=== PATIENT | female | born 1935 | race Caucasian/White ===

== ENCOUNTER 2025-03-04 17:51 | Inpatient (IN) | payer MEDICARE, OTHER ==
[2025-03-04] VITALS: BP 100/54; TEMP 97.7; O2SAT 98
[~2025-03-04] VITALS: Ht 157.5 cm; Wt 56.7 kg
[2025-03-04] MEDS ORDERED: ONDANSETRON HCL/PF 4 MG/2 ML VIAL ONE ×2 (18:40→21:26)
[2025-03-04] MEDS: IV LR 1000 ML 1,000 ML IV ONE (18:45)
[2025-03-04] MEDS: ONDANSETRON HCL/PF 4 MG/2 ML VIAL IVP ONE (18:57)
[2025-03-04] MEDS: PANTOPRAZOLE 80 MG in IV NS 0.9% 500 ML IV ONE (19:05)
[2025-03-04 19:24] LABS: PLATELET COUNT (AUTO) 241 K/uL (150-450); RED BLOOD CELL COUNT(AUTO) 3.13 MIL/uL (4.0-5.2); RED CELL DISTRIBUTION WIDTH 15.4 % (11.5-15.0); WHITE BLOOD COUNT (AUTO) 8.5 K/uL (4.3-11.0)
[2025-03-04 19:29] LABS: CALCIUM, SERUM 9.0 mg/dL (8.5-10.1); CREATININE 1.1 mg/dL (0.6-1.3); SODIUM SERUM 136 mmol/L (136-145); UREA NITROGEN, BLOOD 35 mg/dL (7-18)
[2025-03-04 19:38] LABS: INR 1.11 (0.91-1.10); LACTIC ACID 2.2 mmol/L (0.4-2.0)
[2025-03-04 19:43] LABS: ASPARTATE AMINOTRANSFERASE 54 U/L (15-37); TOTAL PROTEIN, SERUM 7.0 g/dL (6.4-8.2)
[2025-03-04] MEDS ORDERED: IV NS 0.9% 250 ML IV ONE (19:46)
[2025-03-04] MEDS ORDERED: IOHEXOL-300 100 ML VIAL IV ONE (19:46)
[2025-03-04] MEDS: MORPHINE SULFATE INJ 2 MG/ML DISP.SYRIN IV ONE (21:00)
[2025-03-04] MEDS ORDERED: LIDOCAINE VISCOUS 2% UD 15 ML UDC ONE (21:27)
[2025-03-04] MEDS ORDERED: LIDOCAINE VISCOUS 2% UD 15 ML UDC MM SCH (21:30)
[2025-03-04] MEDS: ONDANSETRON HCL/PF 4 MG/2 ML VIAL IV ONE (21:48)
[2025-03-04] MEDS ORDERED: ONDANSETRON HCL/PF 4 MG/2 ML VIAL IVP PRN (22:00)
[2025-03-04 23:00] VITALS: BP 98/50; TEMP 97.5; O2SAT 98
[2025-03-04] MEDS: IV NS 0.9% 1,000 ML IV PRN (23:42)
[2025-03-05] VITALS (54 sets, daily range): BP systolic 85–138; BP diastolic 43–113; TEMP 97.6–99.1; O2SAT 91–100
[2025-03-05] MEDS ORDERED: OCTREOTIDE 500 MCG/ML VIAL ONE (02:01)
[2025-03-05 04:52] LABS: PLATELET COUNT (AUTO) 198 K/uL (150-450); RED BLOOD CELL COUNT(AUTO) 2.48 MIL/uL (4.0-5.2); RED CELL DISTRIBUTION WIDTH 15.5 % (11.5-15.0); WHITE BLOOD COUNT (AUTO) 7.6 K/uL (4.3-11.0)
[2025-03-05 05:23] LABS: CALCIUM, SERUM 8.0 mg/dL (8.5-10.1); CREATININE 1.1 mg/dL (0.6-1.3); PHOSPHORUS 3.6 mg/dL (2.5-4.9); SODIUM SERUM 139.0 mmol/L (136-145); UREA NITROGEN, BLOOD 44.0 mg/dL (7-18)
[2025-03-05] MEDS ORDERED: PANTOPRAZOLE 40 MG VIAL ONE (05:44)
[2025-03-05] MEDS: OCTREOTIDE 500 MCG in IV NS 0.9% 99 ML IV PRN (05:58)
[2025-03-05] MEDS: PANTOPRAZOLE 80 MG in IV NS 0.9% 500 ML IV PRN (06:02)
[2025-03-05] MEDS ORDERED: MAGN400T26 PO (08:26)
[2025-03-05] MEDS ORDERED: ERGO500093 PO (08:26)
[2025-03-05] MEDS ORDERED: FERR325T30 PO (08:26)
[2025-03-05] MEDS ORDERED: FOLI0.4T6 PO (08:26)
[2025-03-05] MEDS ORDERED: DOCU250C14 PO (08:26)
[2025-03-05] MEDS ORDERED: HYDR-4075 PO (08:26)
[2025-03-05] MEDS ORDERED: ACET500C4 PO (08:26)
[2025-03-05] MEDS ORDERED: CYAN10006 IJ (08:26)
[2025-03-05] MEDS ORDERED: METH2.5T PO (08:26)
[2025-03-05] MEDS ORDERED: APIX2.5T PO (08:26)
[2025-03-05] MEDS ORDERED: ALLO300T2 PO (08:26)
[2025-03-05] MEDS ORDERED: ROSU10TA2 PO (08:26)
[2025-03-05] MEDS ORDERED: AMIO200T5 PO (08:26)
[2025-03-05] MEDS ORDERED: FURO20TA4 PO (08:26)
[2025-03-05] MEDS ORDERED: DEXL60CA3 PO (08:26)
[2025-03-05] MEDS: INSULIN REGULAR, HUMAN 100 UNIT/ML 10 ML VIAL IV ONE (09:45)
[2025-03-05] MEDS: DEXTROSE 50%-WATER 50 ML DISP.SYRIN IVP ONE (09:48)
[2025-03-05] MEDS: PANTOPRAZOLE 40 MG VIAL IV SCH (10:09)
[2025-03-05 11:30] LABS: CALCIUM, SERUM 7.3 mg/dL (8.5-10.1); CREATININE 1.2 mg/dL (0.6-1.3); SODIUM SERUM 140 mmol/L (136-145); UREA NITROGEN, BLOOD 39 mg/dL (7-18)
[2025-03-05] MEDS ORDERED: SUCRALFATE 1 G/10 ML UDC GT SCH (12:00)
[2025-03-05] MEDS ORDERED: ANESTHESIA TRAY IN PYXIS 1 EA TRAY MC ONE (12:36)
[2025-03-05] MEDS: SUCRALFATE 1 G/10 ML UDC PO SCH (13:04)
[2025-03-05] MEDS: MORPHINE SULFATE INJ 2 MG/ML DISP.SYRIN IV PRN (18:55)
[2025-03-06] VITALS (15 sets, daily range): BP systolic 97–147; BP diastolic 48–81; TEMP 97.5–98.1; O2SAT 91–100
[2025-03-06 04:47] LABS: PLATELET COUNT (AUTO) 197 K/uL (150-450); RED BLOOD CELL COUNT(AUTO) 3.22 MIL/uL (4.0-5.2); RED CELL DISTRIBUTION WIDTH 16.1 % (11.5-15.0); WHITE BLOOD COUNT (AUTO) 7.3 K/uL (4.3-11.0)
[2025-03-06 04:58] LABS: CALCIUM, SERUM 7.6 mg/dL (8.5-10.1); CREATININE 0.9 mg/dL (0.6-1.3); PHOSPHORUS 2.4 mg/dL (2.5-4.9); SODIUM SERUM 144.0 mmol/L (136-145); UREA NITROGEN, BLOOD 36.0 mg/dL (7-18)
[2025-03-06] MEDS: NEUTRA PHOS 1 POWD.PACKET PO ONE (17:05)
[2025-03-07] VITALS: BP 102/81; TEMP 97.9; O2SAT 94
[2025-03-07 04:00] VITALS: BP 115/68; TEMP 98.1; O2SAT 94
[2025-03-07] MEDS: ACETAMINOPHEN 325 MG TABLET PO PRN (06:15)
[2025-03-07 06:53] LABS: PLATELET COUNT (AUTO) 205 K/uL (150-450); RED BLOOD CELL COUNT(AUTO) 3.08 MIL/uL (4.0-5.2); RED CELL DISTRIBUTION WIDTH 15.6 % (11.5-15.0); WHITE BLOOD COUNT (AUTO) 6.1 K/uL (4.3-11.0)
[2025-03-07 07:03] LABS: CALCIUM, SERUM 7.5 mg/dL (8.5-10.1); CREATININE 0.9 mg/dL (0.6-1.3); PHOSPHORUS 1.9 mg/dL (2.5-4.9); SODIUM SERUM 144.0 mmol/L (136-145); UREA NITROGEN, BLOOD 27.0 mg/dL (7-18)
[2025-03-07 08:00] VITALS: BP 121/71; TEMP 98.2; O2SAT 96
[2025-03-07 12:00] VITALS: BP 116/68; TEMP 98.6; O2SAT 96
[2025-03-07] MEDS ORDERED: SUCR1ORA6 PO (13:11)
[2025-03-07] MEDS ORDERED: NEUTRA PHOS 1 POWD.PACKET PO ONE (16:00)
[2025-03-07] MEDS ORDERED: PANTOPRAZOLE 40 MG/PACK PACK PO SCH (21:00)
== END 2025-03-07 15:45 | disposition home health service (06) | DRG 369 ==
LOC: ER 18:14 → EDSEX 18:14 → TELE 20:52 → ICU 03-05 04:00 → TELE1 03-06 12:18
PROVIDERS: ADMIT Nurse Practitioner Acute Care; ATTEND Nurse Practitioner Acute Care
PROC: 30233N1 Transfusion of Nonautologous Red Blood Cells into Peripheral Vein, Percutaneous Approach (ICD-10-PCS; 2025-03-05)
PROC: 0DB68ZX Excision of Stomach, Via Natural or Artificial Opening Endoscopic, Diagnostic (ICD-10-PCS; principal; 2025-03-05 11:00)
DX: K20.81 Other esophagitis with bleeding (principal); D62 Acute posthemorrhagic anemia; E87.20 Acidosis, unspecified; E44.1 Mild protein-calorie malnutrition; I50.32 Chronic diastolic (congestive) heart failure; E88.09 Other disorders of plasma-protein metabolism, not elsewhere classified; Z79.01 Long term (current) use of anticoagulants; I11.0 Hypertensive heart disease with heart failure; D68.69 Other thrombophilia; I48.91 Unspecified atrial fibrillation; K29.70 Gastritis, unspecified, without bleeding; K44.9 Diaphragmatic hernia without obstruction or gangrene; E87.5 Hyperkalemia; Z96.643 Presence of artificial hip joint, bilateral; K52.9 Noninfective gastroenteritis and colitis, unspecified; Z68.22 Body mass index [BMI] 22.0-22.9, adult
CPT/HCPCS: 36415; 71045-TC; 80048-TC; 80076-TC; 83605-TC; 83690-TC; 83735-TC; 84100-TC; 84484-TC; 85025-TC; 85027-TC; 85730-TC; 86850-TC; 87040-TC; 87081-TC; 93307-TC; 97112-TC; 97116-TC; 97530-TC; A4223; G0378; J1815; J2270; J2354; J2405; J2470; J2704; J3490; J7030; J7040; J7050; J7120; P9016; Q9967